=== PATIENT | female | born 1985 | race Caucasian/White ===

== ENCOUNTER 2020-04-22 01:04 | Emergency (ER) | payer OTHER ==
--- NOTE | 2020-04-22 01:26 | EDM.PDOC ---
ED HPI GENERAL MEDICAL PROBLEM - General Stated Complaint: Left great toe pain, bleeding under the nail Time Seen by Provider: 04/22/20 01:15 Source of Information: Reports: Patient History Limitations: Reports: No Limitations - History of Present Illness INITIAL COMMENTS - FREE TEXT/NARRATIVE: Patient comes emergency department today from home with concerns of an injury to her left great toe. Just of hours prior to arrival the patient dropped a bug spray can on her left great toe that struck her right on that toenail. She developed a hematoma under the toenail and it become quite painful. She really only has pain on the toenail but nothing on her toe or her foot anywhere else. She denies any other injury. left great toe Pain Score (Numeric/FACES): 4 - Related Data Allergies Allergy/AdvReac Type Severity Reaction Status Date / Time No Known Allergies Allergy Verified 04/22/20 02:03 Home Meds: Home Meds . [No Known Home Meds] 04/22/20 [History] Review of Systems - Review of Systems Review Of Systems: Comprehensive ROS is negative, except as noted in HPI. ED EXAM, GENERAL - Physical Exam Exam: See Below Exam Limited By: No Limitations General Appearance: Alert, WD/WN, Mild Distress Respiratory/Chest: No Respiratory Distress Cardiovascular: Normal Peripheral Pulses Peripheral Pulses: 2+: Posterior Tibial (L), Posterior Tibial (R), Dorsalis Pedis (L), Dorsalis Pedis (R) Extremities: No: Normal Inspection (Examination of the left foot shows a subungual hematoma at the base of the toenail of the left great toe. The rest of the left foot is atraumatic. There is no tenderness anywhere else on the toe other than the toenail. There is no overt bony deformity. She is able to flex and extend at the IP joint and the MCP joint.) Neurological: Alert, Oriented, Normal Cognition, No Motor/Sensory Deficits Psychiatric: Normal Affect Skin Exam: Warm, Dry, Intact, Normal Color Course - Vital Signs Last Recorded V/S: Last Vital Signs Temp 98.3 F 04/22/20 01:04 Pulse 100 04/22/20 01:04 Resp 16 04/22/20 01:04 BP 140/84 04/22/20 01:04 Pulse Ox 99 04/22/20 01:04 - Re-Assessments/Exams Free Text/Narrative Re-Assessment/Exam: 04/22/20 14:44 After verbal consent was obtained I used a cautery Bovie tip to decompress the subungual hematoma under the left great toe nail. Had a moderate amount of blood return and almost instant pain relief from the patient. She tolerated the procedure well. I did offer an x-ray for which she refused. I discussed the plan of care with the patient she is comfortable with this plan and her questions are answered. Departure - Departure Time of Disposition: 01:23 Disposition: Home, Self-Care 01 Clinical Impression: Subungual hematoma of great toe of left foot Qualifiers: Encounter type: initial encounter Qualified Code(s): S90.212A - Contusion of left great toe with damage to nail, initial encounter - Discharge Information Instructions: Subungual Hematoma, [id number], Pain Medicine Instructions, [id number] Referrals: PCP,None [Primary Care Provider] - Forms: ED Department Discharge Additional Instructions: Tylenol and or Ibuprofen as needed for pain. Soak the foot twice daily with warm/hot water with [place] [facility] Soap and Epsom salts twice daily for the next week. Bacitracin and bandage until healed. Watch for infection unlikely. Recheck if any concerns. - Assessment/Plan Assessment:: Left great toe subungual hematoma Plan: Tylenol and or Ibuprofen as needed for pain. Soak the foot twice daily with warm/hot water with [place] [facility] Soap and Epsom salts twice daily for the next week. Bacitracin and bandage until healed. Watch for infection unlikely. Recheck if any concerns.
== END 2020-04-22 01:31 | disposition home or self-care (01) ==
LOC: VM.ED 01:04
DX: S90.212A Contusion of left great toe with damage to nail, initial encounter (principal); W22.8XXA Striking against or struck by other objects, initial encounter
CPT/HCPCS: 11740; 99283; 99283-GF